=== PATIENT | female | born 1945 ===

== ENCOUNTER 2017-12-18 11:39 | Emergency (ER) | payer MEDICAID, MEDICARE ==
[2017-12-18 13:13] VITALS: RESP 18; TEMP 98.9; O2SAT 98; BMI 24.7
[2017-12-18 14:22] LABS: BASO # 0.02 K/mm3 (0.0-2.0); BASO % 0.2 % (0.0-3.0); EOS # 0.1 (0.0-0.7); EOS % 0.7 % (1.5-5.0); GRAN # 7.86 (1.4-6.5); GRAN % 64.5 % (50.0-68.0); HEMOGLOBIN 14.9 g/dL (12.0-16.0); LYMPH # 3.2 (1.2-3.4); LYMPH % 26.4 % (22.0-35.0); MEAN CORPUSCULAR HEMOGLOBIN 30.7 pg (25.0-35.0); MEAN PLATELET VOLUME 9.7 fl (7.0-11.0); MONO % 8.2 % (1.0-6.0); RBC 4.85 10^6/uL (3.5-6.1); RED CELL DISTRIBUTION WIDTH 13.1 % (11.5-14.5); WHITE BLOOD COUNT 12.2 10^3/ul (4.5-11.0)
[2017-12-18 14:39] LABS: ALB/GLOB RATIO 1.4 (1.1-1.8); ALBUMIN 4.4 g/dL (3.0-4.8); ALT/SGPT 27 U/L (7-56); AST/SGOT 21 U/L (14-36); BLOOD UREA NITROGEN 18 mg/dL (7-21); GFR NON-AFRICAN AMERICAN > 60; INR 1.02; PARTIAL THROMBOPLASTIN TIME 29.3 Seconds (25.1-36.5); PROTHROMBIN TIME 11.6 SECONDS (9.4-12.5)
[2017-12-18] MEDS ORDERED: Sodium Chloride 0.9% 1,000 ML IV STA (14:40)
[2017-12-18] MEDS ORDERED: Insulin Regular 1 UNITS/0.01 ML ML SC STA (14:42)
--- NOTE | 2017-12-18 15:55 | RAD ---
Date of service: 12/18/2017 HISTORY: Cough. COMPARISON: No prior. TECHNIQUE: Chest PA and lateral FINDINGS: LUNGS: No active pulmonary disease. PLEURA: No significant pleural effusion identified. No pneumothorax apparent. CARDIOVASCULAR: No radiographic findings to suggest acute or significant cardiovascular disease. OSSEOUS STRUCTURES: No significant abnormalities. VISUALIZED UPPER ABDOMEN: Normal. OTHER FINDINGS: None. IMPRESSION: No active disease.
[2017-12-18 16:02] VITALS: BP 138/71; PULSE 86
[2017-12-18] MEDS ORDERED: Amoxicillin-Clav 500-125 mg Tab PO STA (16:14)
--- NOTE | 2017-12-18 16:18 | ED PDOC ---
Arrival/HPI - General Chief Complaint: Cough, Cold, Congestion Time Seen by Provider: 12/18/17 13:28 Historian: Patient - History of Present Illness Narrative History of Present Illness (Text): 12/18/17 16:15 72yo female with pmhx of hypertension, diabetes who present with complaint of yellow productive cough, fever, chills x 3days. States she did not take any medication. Denies chest pain, SOB, sick contact, travel, diaphoresis, nausea, vomiting, abdominal pain, any other complaint. Past Medical History - Provider Review Nursing Documentation Reviewed: Yes - Infectious Disease Hx of Infectious Diseases: None - Cardiac Hx Hypertension: Yes - Endocrine/Metabolic Hx Diabetes Mellitus Type 2: Yes - Psychiatric Hx Substance Use: No - Surgical History Hx Appendectomy: Yes Hx Hysterectomy: Yes - Anesthesia Hx Anesthesia: Yes Hx Anesthesia Reactions: No Hx Malignant Hyperthermia: No Family/Social History - Physician Review Nursing Documentation Reviewed: Yes Family/Social History: Unknown Family HX Smoking Status: Never Smoked Hx Alcohol Use: No Hx Substance Use: No Allergies/Home Meds Allergies/Adverse Reactions: Allergies No Known Allergies Allergy (Verified 12/18/17 13:13) Home Medications: Home Meds Medication Instructions Recorded Confirmed Capoten 25 mg PO DAILY 05/16/15 05/16/15 metFORMIN [glucOPHAGE] 1,000 mg PO BID 05/16/15 05/16/15 Review of Systems - Physician Review All systems were reviewed & negative as marked: Yes - Review of Systems Constitutional: Fevers Eyes: Normal ENT: Normal Respiratory: Cough, Sputum. absent: SOB, Wheezing Cardiovascular: Normal Gastrointestinal: Normal Genitourinary Female: Normal Musculoskeletal: Normal Skin: Normal Neurological: Normal Endocrine: Normal Hemo/Lymphatic: Normal Psychiatric: Normal Physical Exam Vital Signs Reviewed: Yes Vital Signs Temp Pulse Resp BP Pulse Ox 12/18/17 16:02 86 18 138/71 98 12/18/17 14:51 94 H 18 141/70 98 12/18/17 13:13 98.9 F 101 H 18 144/78 98 Temperature: Afebrile Blood Pressure: Normal Pulse: Regular Respiratory Rate: Normal Appearance: Positive for: Well-Appearing, Non-Toxic, Comfortable Pain Distress: None Mental Status: Positive for: Alert and Oriented X 3 Finger Stick Blood Glucose: 324 - Systems Exam Head: Present: Atraumatic, Normocephalic Pupils: Present: PERRL Extroacular Muscles: Present: EOMI Conjunctiva: Present: Normal Mouth: Present: Moist Mucous Membranes Neck: Present: Normal Range of Motion Respiratory/Chest: Present: Clear to Auscultation, Good Air Exchange, Other (Coarse on the bases). No: Respiratory Distress, Accessory Muscle Use, Wheezes, Decreased Breath Sounds, Rales, Retracting, Rhonchi Cardiovascular: Present: Regular Rate and Rhythm, Normal S1, S2. No: Murmurs Abdomen: No: Tenderness, Distention, Peritoneal Signs Back: Present: Normal Inspection Upper Extremity: Present: Normal Inspection. No: Cyanosis, Edema Lower Extremity: Present: Normal Inspection. No: Edema Neurological: Present: GCS=15, CN II-XII Intact, Speech Normal Skin: Present: Warm, Dry, Normal Color. No: Rashes Psychiatric: Present: Alert, Oriented x 3, Normal Insight, Normal Concentration Medical Decision Making ED Course and Treatment: 12/19/17 17:52 abs was ordered and mild leukocytosis was noted. She was hypderglyemic and her FS improved in ED with hydration and insulin. CXR NAD Pt's symptoms likely viral URI Secondary to her co morbidities and symptoms she was started on abx. Result was DW the pt and she was referred to her PMD. - Lab Interpretations Microbiology Results: Microbiology Results 12/18/17 15:26 Blood-Venous Blood Culture - Preliminary NO GROWTH AFTER 24 HOURS 12/18/17 14:14 Blood-Venous Blood Culture - Preliminary NO GROWTH AFTER 24 HOURS Lab Results: 12/18/17 14:14 12/18/17 14:14 Lab Results 12/18/17 16:25: POC Glucose (mg/dL) 252 H 12/18/17 14:50: POC Glucose (mg/dL) 325 H 12/18/17 14:14: PT 11.6, INR 1.02, APTT 29.3 12/18/17 14:14: Influenza Typ A,B (EIA) Negative for flu a/b 12/18/17 14:14: Sodium 138, Potassium 4.1, Chloride 100, Carbon Dioxide 26, Anion Gap 16, BUN 18, Creatinine 0.5 L, Est GFR ( Amer) > 60, Est GFR (Non-Af Amer) > 60, Random Glucose 320 H*, Calcium 10.0, Total Bilirubin 0.4, AST 21, ALT 27, Alkaline Phosphatase 94, Total Protein 7.5, Albumin 4.4, G lobulin 3.1, Albumin/Globulin Ratio 1.4 12/18/17 14:14: WBC 12.2 H, RBC 4.85, Hgb 14.9, Hct 45.1, MCV 93.0, MCH 30.7, MCHC 33.0, RDW 13.1, Plt Count 318, MPV 9.7, Gran % 64.5, Lymph % (Auto) 26.4, [place] % (Auto) 8.2 H, Eos % (Auto) 0.7 L, Baso % (Auto) 0.2, Gran # 7.86 H, Lymph # (Auto) 3.2, [place] # (Auto) 1.0 H, Eos # (Auto) 0.1, Baso # (Auto) 0.02 - RAD Interpretation Radiology Orders: 12/18/17 13:30 CHEST TWO VIEWS (PA/LAT) [RAD] Stat - Medication Orders Current Medication Orders: Discontinued Medications Amoxicillin/Clavulanate Potassium (Augmentin 500 Mg-125 Mg Tab) 1 tab PO STAT STA; Protocol Stop: 12/18/17 16:15 Last Admin: 12/18/17 16:47 Dose: 1 tab Sodium Chloride (Sodium Chloride 0.9%) 1,000 mls @ 999 mls/hr IV .Q1H1M STA Stop: 12/18/17 15:40 Last Admin: 12/18/17 14:51 Dose: 999 mls/hr eMAR Start Stop Document 12/18/17 14:51 EQ (Rec: 12/18/17 14:51 EQ [id number]) Intravenous Solution Start Date 12/18/17 Start Time 14:51 Insulin Human Regular (Humulin R) 6 units SC ONCE STA Stop: 12/18/17 14:43 Last Admin: 12/18/17 14:52 Dose: Not Given Non-Admin Reason: wrong order/waiting on corect order MAR Blood Glucose Document 12/18/17 14:52 EQ (Rec: 12/18/17 14:52 EQ [id number]) Blood Glucose Finger Stick Blood Glucose (70-120) 324 Subcutaneous Administrations Document 12/18/17 14:52 EQ (Rec: 12/18/17 14:52 EQ [id number]) Charges for Administration # of Subcutaneous Administrations 1 Insulin Human Regular (Humulin R) 6 units IVP ONCE STA Stop: 12/18/17 16:40 Last Admin: 12/18/17 14:42 Dose: 6 unit MAR Blood Glucose Document 12/18/17 14:42 EQ (Rec: 12/18/17 16:47 EQ [id number]) Blood Glucose Finger Stick Blood Glucose (70-120) 325 IVP Administration Document 12/18/17 14:42 EQ (Rec: 12/18/17 16:47 EQ [id number]) Charges for Administration # of IVP Administrations 1 Disposition/Present on Arrival - Present on Arrival Any Indicators Present on Arrival: No History of DVT/PE: No History of Uncontrolled Diabetes: No Urinary Catheter: No History of Decub. Ulcer: No History Surgical Site Infection Following: None - Disposition Have Diagnosis and Disposition been Completed?: Yes Diagnosis: Upper respiratory infection, Hyperglycemia Disposition: HOME/ ROUTINE Disposition Time: 16:20 Patient Plan: Discharge Condition: STABLE Discharge Instructions (ExitCare): Viral Upper Respiratory Infection, Adult (DC) Additional Instructions: Follow up with your doctor Return to ED for any new or worsening symptoms Prescriptions: Amoxicillin/Potassium Clav [Augmentin 500-125 Tablet] 1 each PO BID #14 tablet Benzonatate [Tessalon Perle] 100 mg PO TID #20 capsule Referrals: Anabella Abad MD [Medical Doctor] - Follow up with primary Forms: [employer] (Danish)
[2017-12-18] MEDS ORDERED: Insulin Regular 1 UNITS/0.01 ML ML IVP STA (16:39)
== END 2017-12-18 17:00 | disposition home or self-care (01) ==
LOC: ED 11:39
DX: J06.9 Acute upper respiratory infection, unspecified (principal)
CPT/HCPCS: 71046; 80053; 82948; 85025; 85610; 85730; 87040; 87804; 96372; 96374; 99283; J7030